=== PATIENT | female | born 1940 | race Caucasian/White ===

== ENCOUNTER 2020-04-01 13:30 | Inpatient (IN) | payer MEDICARE, BC ==
[2020-04-01] MEDS ORDERED: Nitroglycerin 0.4 MG Tab.SL SL PRN (13:35)
[2020-04-01] MEDS: Insulin Lispro 100 Units/ML 3 ML Vial SUBCUT SCH (18:03)
[2020-04-01] MEDS: metFORMIN 500 MG Tab PO SCH (18:03)
[2020-04-01] MEDS: Midodrine 2.5 MG Tab PO SCH (18:03)
--- NOTE | 2020-04-01 19:39 | HP ---
CHIEF COMPLAINT: 1. Hip pain. 2. Weakness. 3. Deconditioning. HISTORY OF PRESENT ILLNESS: An 80-year-old female patient with a past medical history of hypertension, hyperlipidemia, CVA, coronary artery disease status post CABG and PCI, insulin-dependent diabetic, chronic kidney disease, presented to the emergency room at [facility] on 03/24/2020 after she sustained a fall at home. The patient states that she was reaching for the arm on a chair that had wheels when she slipped and fell, landing on her left side. The patient was unable to ambulate due to the left hip pain. In the emergency room, the patient was hypertensive, but afebrile. She had moderate hyperglycemia with elevated white cell count of 13.5. Her chronic kidney disease was stable. Her UA was negative for any UTI. Her x-ray showed proximal left femur fracture. The orthopedics team was consulted and the patient was admitted to [facility] for further management. The patient did undergo surgery on 03/25/2020 for a left hip closed intertrochanteric femur fracture on the left. The operative procedure was open treatment of left hip intertrochanteric femur fracture with cephalomedullary nailing. According to operative records, the patient did well through surgery with no complications. The patient was able to progress well with physical therapy. The patient did have some issues with orthostatic hypotension in which her metoprolol was stopped. The patient was also given 1 unit of red blood cells for a low hemoglobin as well as 2 L of fluid. The patient was doing much better hemodynamically on the date of discharge and was able to be sent to our swing bed. PAST MEDICAL HISTORY: 1. Right ankle fracture. 2. Carotid artery stenosis. 3. Coronary artery disease. 4. Type 2 diabetes. 5. Hyperlipidemia. 6. Hypertension. 7. Peripheral neuropathy. 8. Vitamin D deficiency. PAST SURGICAL HISTORY: 1. Right ankle surgery. 2. Appendectomy. 3. History of cardiac catheterization. 4. Colonoscopy. 5. Colpopexy. 6. Coronary artery stenting. 7. CABG with MEDEROS to LAD. 8. Vaginal hysterectomy. 9. Shoulder surgery. 10.Urethropexy. 11.Vaginal prolapse repair. FAMILY HISTORY: The patient's father was diabetic as well as her mother. She also had 1 brother, who was diabetic. No family history of any breast cancer. SOCIAL HISTORY: The patient has never smoked cigarettes. The patient has never used smokeless tobacco. The patient does not drink alcohol or use any illegal drugs. ALLERGIES: 1. Lescol. 2. Lipitor. 3. Nystatin. MEDICATIONS: 1. NovoLog 8 units subcu 3 times daily with meals. 2. Lantus 30 units subcu daily. 3. Lovenox 40 mg subcu daily. 4. Midodrine 2.5 mg 1 tablet p.o. twice daily. 5. Hydrocodone/acetaminophen 5 mg/325 mg, 1 tablet every 4 hours as needed for pain. 6. Cyanocobalamin 500 mcg 1 tablet p.o. daily. 7. Crestor 10 mg 1 tablet p.o. daily. 8. Nitroglycerin 0.4 mg sublingual 1 tablet every 5 minutes as needed for chest pain. 9. Vitamin D2, 50,000 units twice weekly. 10.Metformin 500 mg 1 tablet p.o. twice daily. 11.Plavix 75 mg 1 tablet p.o. daily. 12.Aspirin 81 mg 1 tablet p.o. daily. 13.Calcium with vitamin D 600 mg/200 mg, 1 tablet p.o. daily. REVIEW OF SYSTEMS: Constitutional: Negative. Respiratory: Negative. Cardiovascular: Negative. Musculoskeletal: The patient denies any pain to the left hip. Skin: Negative. Neurological: Negative. PHYSICAL EXAMINATION: General Presentation: The patient is alert. The patient is cooperative. The patient does not appear to be in any acute distress. Respiratory: Lungs are clear to auscultation. Cardiovascular: Regular rate and rhythm. No murmurs. Abdomen: Soft, nontender. Bowel sounds are hypoactive x4. Skin: Incision site is clean, dry, and intact. No pressure ulcers. Neurological: The patient is alert. The patient is cooperative. No focal neurological deficits. Vital Signs: Weight is 176.4 pounds, height is 5 feet 5 inches. Temperature 97.8, pulse is 83, blood pressure is 177/70, respirations are 16, oxygen saturation 95% on room air. LABORATORY STUDIES: None. IMAGING STUDIES: None. ASSESSMENT: 1. Left femur fracture. 2. Weakness. 3. Deconditioning. 4. Coronary artery disease status post coronary artery bypass grafting and percutaneous coronary intervention. 5. Hypertension. 6. Hyperlipidemia. 7. History of cerebrovascular accident. 8. Diabetes mellitus. PLAN: An 80-year-old female patient with a past medical history of diabetes, coronary artery disease, hypertension, hyperlipidemia. She is admitted to the swing bed unit today for weakness and deconditioning following left hip surgery. The patient is a full code per her wishes. The patient does wish to be transferred to a higher level of care should the need arise. We will continue the Lovenox daily until 04/23/2020. We will check orthostatic blood pressures today. We will also follow up on a low hemoglobin that was noted in the patient's old records from her acute stay admission. We will recheck the hemoglobin this Saturday. PT and OT will be consulted respectively. We will also ask Case Management to see the patient for discharge planning and any home needs. I anticipate the patient will be admitted for at least 1 week, possibly longer. Plan of care was thoroughly discussed with the patient today, who agreed. This patient was seen and examined by me as an [facility] provider. TB: 04/01/2020 17:01:04 MODL: 04/01/2020 19:32:04 /[id number]
[2020-04-01] MEDS: Simvastatin 40 MG Tab PO SCH (20:10)
[2020-04-01] MEDS: Insulin Glarg,Human.Rec.Analog 100 Unit/ML SUBCUT SCH (20:10)
[2020-04-01] MEDS: Acetaminophen/HYDROcodone 325-5 MG Tab PO PRN (20:22)
[2020-04-02] MEDS: Acetaminophen/HYDROcodone 325-5 MG Tab PO PRN ×4 (03:55→21:31)
[2020-04-02] MEDS: Clopidogrel 75 MG Tab PO SCH (08:10)
[2020-04-02] MEDS: Enoxaparin 40 MG/0.4 ML Syringe SUBCUT SCH (08:10)
[2020-04-02] MEDS: Calcium Carbonate/Vitamin D3 1250 MG-200 Unit Tab PO SCH (08:10)
[2020-04-02] MEDS: metFORMIN 500 MG Tab PO SCH ×2 (08:10→17:48)
[2020-04-02] MEDS: Insulin Lispro 100 Units/ML 3 ML Vial SUBCUT SCH ×3 (08:11→17:48)
[2020-04-02] MEDS: Midodrine 2.5 MG Tab PO SCH ×2 (08:12→15:28)
[2020-04-02] MEDS: Cyanocobalamin (Vitamin B12) 250 MCG Tab PO SCH (08:12)
[2020-04-02] MEDS: Aspirin 81 MG Tab.EC PO SCH (08:12)
[2020-04-02] MEDS: Simvastatin 40 MG Tab PO SCH (20:10)
[2020-04-02] MEDS: Insulin Glarg,Human.Rec.Analog 100 Unit/ML SUBCUT SCH (20:10)
[2020-04-03] MEDS: Enoxaparin 40 MG/0.4 ML Syringe SUBCUT SCH (07:50)
[2020-04-03] MEDS: Insulin Lispro 100 Units/ML 3 ML Vial SUBCUT SCH ×3 (07:51→17:52)
[2020-04-03] MEDS: metFORMIN 500 MG Tab PO SCH ×2 (07:53→17:53)
[2020-04-03] MEDS: Midodrine 2.5 MG Tab PO SCH ×2 (07:53→15:26)
[2020-04-03] MEDS: Clopidogrel 75 MG Tab PO SCH (07:53)
[2020-04-03] MEDS: Aspirin 81 MG Tab.EC PO SCH (07:53)
[2020-04-03] MEDS: Calcium Carbonate/Vitamin D3 1250 MG-200 Unit Tab PO SCH (07:54)
[2020-04-03] MEDS: Acetaminophen/HYDROcodone 325-5 MG Tab PO PRN ×3 (07:54→20:52)
[2020-04-03] MEDS: Cyanocobalamin (Vitamin B12) 250 MCG Tab PO SCH (07:54)
[2020-04-03] MEDS: Ondansetron 4 MG Tab.DIS PO PRN (13:44)
[2020-04-03] MEDS: Insulin Glarg,Human.Rec.Analog 100 Unit/ML SUBCUT SCH (20:51)
[2020-04-03] MEDS: Polyethylene Glycol 3350 Powder 17 GM Packet PO SCH (20:52)
[2020-04-03] MEDS: Simvastatin 40 MG Tab PO SCH (20:53)
[2020-04-04] MEDS: Acetaminophen/HYDROcodone 325-5 MG Tab PO PRN ×2 (06:13→14:47)
[2020-04-04] MEDS: Enoxaparin 40 MG/0.4 ML Syringe SUBCUT SCH (08:42)
[2020-04-04] MEDS: Ergocalciferol (Vitamin D2) 1.25 MG Cap PO SCH (08:42)
[2020-04-04] MEDS: Polyethylene Glycol 3350 Powder 17 GM Packet PO SCH (08:42)
[2020-04-04] MEDS: Clopidogrel 75 MG Tab PO SCH (08:43)
[2020-04-04] MEDS: Cyanocobalamin (Vitamin B12) 250 MCG Tab PO SCH (08:43)
[2020-04-04] MEDS: metFORMIN 500 MG Tab PO SCH ×2 (08:43→18:00)
[2020-04-04] MEDS: Calcium Carbonate/Vitamin D3 1250 MG-200 Unit Tab PO SCH (08:43)
[2020-04-04] MEDS: Aspirin 81 MG Tab.EC PO SCH (08:44)
[2020-04-04] MEDS: Insulin Lispro 100 Units/ML 3 ML Vial SUBCUT SCH ×3 (08:44→17:59)
[2020-04-04] MEDS: Midodrine 2.5 MG Tab PO SCH ×2 (08:44→17:06)
[2020-04-04] MEDS: Insulin Glarg,Human.Rec.Analog 100 Unit/ML SUBCUT SCH (20:14)
[2020-04-04] MEDS: Simvastatin 40 MG Tab PO SCH (20:15)
[2020-04-05] MEDS: Polyethylene Glycol 3350 Powder 17 GM Packet PO SCH (08:12)
[2020-04-05] MEDS: Insulin Lispro 100 Units/ML 3 ML Vial SUBCUT SCH ×3 (08:13→17:45)
[2020-04-05] MEDS: Enoxaparin 40 MG/0.4 ML Syringe SUBCUT SCH (08:15)
[2020-04-05] MEDS: Ondansetron 4 MG Tab.DIS PO PRN (08:16)
[2020-04-05] MEDS: Acetaminophen/HYDROcodone 325-5 MG Tab PO PRN ×3 (08:17→23:28)
[2020-04-05] MEDS: Calcium Carbonate/Vitamin D3 1250 MG-200 Unit Tab PO SCH (08:17)
[2020-04-05] MEDS: Cyanocobalamin (Vitamin B12) 250 MCG Tab PO SCH (08:17)
[2020-04-05] MEDS: Clopidogrel 75 MG Tab PO SCH (08:17)
[2020-04-05] MEDS: metFORMIN 500 MG Tab PO SCH ×2 (08:17→17:45)
[2020-04-05] MEDS: Midodrine 2.5 MG Tab PO SCH ×2 (08:18→15:08)
[2020-04-05] MEDS: Aspirin 81 MG Tab.EC PO SCH (08:18)
[2020-04-05] MEDS: Insulin Glarg,Human.Rec.Analog 100 Unit/ML SUBCUT SCH (20:43)
[2020-04-05] MEDS: Simvastatin 40 MG Tab PO SCH (20:44)
[2020-04-06] MEDS: Acetaminophen/HYDROcodone 325-5 MG Tab PO PRN ×2 (05:51→13:51)
[2020-04-06] MEDS: metFORMIN 500 MG Tab PO SCH ×2 (08:39→17:43)
[2020-04-06] MEDS: Enoxaparin 40 MG/0.4 ML Syringe SUBCUT SCH (08:39)
[2020-04-06] MEDS: Polyethylene Glycol 3350 Powder 17 GM Packet PO SCH (08:39)
[2020-04-06] MEDS: Midodrine 2.5 MG Tab PO SCH ×2 (08:40→17:44)
[2020-04-06] MEDS: Cyanocobalamin (Vitamin B12) 250 MCG Tab PO SCH (08:40)
[2020-04-06] MEDS: Calcium Carbonate/Vitamin D3 1250 MG-200 Unit Tab PO SCH (08:40)
[2020-04-06] MEDS: Insulin Lispro 100 Units/ML 3 ML Vial SUBCUT SCH ×3 (08:40→17:43)
[2020-04-06] MEDS: Aspirin 81 MG Tab.EC PO SCH (08:40)
[2020-04-06] MEDS: Clopidogrel 75 MG Tab PO SCH (08:40)
[2020-04-06] MEDS: Acetaminophen 500 MG Tab PO PRN (09:36)
[2020-04-06] MEDS: Simvastatin 40 MG Tab PO SCH (19:54)
[2020-04-06] MEDS: Insulin Glarg,Human.Rec.Analog 100 Unit/ML SUBCUT SCH (19:55)
[2020-04-07] MEDS: Acetaminophen/HYDROcodone 325-5 MG Tab PO PRN ×3 (06:57→17:22)
[2020-04-07] MEDS: Polyethylene Glycol 3350 Powder 17 GM Packet PO SCH (07:40)
[2020-04-07] MEDS: Insulin Lispro 100 Units/ML 3 ML Vial SUBCUT SCH ×3 (07:40→18:36)
[2020-04-07] MEDS: Enoxaparin 40 MG/0.4 ML Syringe SUBCUT SCH (07:40)
[2020-04-07] MEDS: Clopidogrel 75 MG Tab PO SCH (07:41)
[2020-04-07] MEDS: Midodrine 2.5 MG Tab PO SCH ×2 (07:41→17:24)
[2020-04-07] MEDS: Calcium Carbonate/Vitamin D3 1250 MG-200 Unit Tab PO SCH (07:41)
[2020-04-07] MEDS: Cyanocobalamin (Vitamin B12) 250 MCG Tab PO SCH (07:41)
[2020-04-07] MEDS: Ergocalciferol (Vitamin D2) 1.25 MG Cap PO SCH (07:41)
[2020-04-07] MEDS: metFORMIN 500 MG Tab PO SCH ×2 (07:41→17:28)
[2020-04-07] MEDS: Aspirin 81 MG Tab.EC PO SCH (07:41)
[2020-04-07] MEDS: Insulin Glarg,Human.Rec.Analog 100 Unit/ML SUBCUT SCH (20:02)
[2020-04-07] MEDS: Simvastatin 40 MG Tab PO SCH (20:02)
[2020-04-08] MEDS: Ondansetron 4 MG Tab.DIS PO PRN (07:53)
[2020-04-08] MEDS: Enoxaparin 40 MG/0.4 ML Syringe SUBCUT SCH (08:39)
[2020-04-08] MEDS: Polyethylene Glycol 3350 Powder 17 GM Packet PO SCH (08:39)
[2020-04-08] MEDS: Clopidogrel 75 MG Tab PO SCH (08:40)
[2020-04-08] MEDS: Aspirin 81 MG Tab.EC PO SCH (08:40)
[2020-04-08] MEDS: metFORMIN 500 MG Tab PO SCH ×2 (08:40→17:57)
[2020-04-08] MEDS: Insulin Lispro 100 Units/ML 3 ML Vial SUBCUT SCH ×3 (08:40→18:04)
[2020-04-08] MEDS: Calcium Carbonate/Vitamin D3 1250 MG-200 Unit Tab PO SCH (08:40)
[2020-04-08] MEDS: Cyanocobalamin (Vitamin B12) 250 MCG Tab PO SCH (08:40)
[2020-04-08] MEDS: Midodrine 2.5 MG Tab PO SCH ×2 (08:40→17:57)
[2020-04-08] MEDS: Meclizine 25 MG Tab PO SCH ×2 (15:15→20:04)
[2020-04-08] MEDS: Simvastatin 40 MG Tab PO SCH (20:04)
[2020-04-08] MEDS: Insulin Glarg,Human.Rec.Analog 100 Unit/ML SUBCUT SCH (20:05)
[2020-04-08] MEDS: Acetaminophen/HYDROcodone 325-5 MG Tab PO PRN (22:43)
[2020-04-09] MEDS: Acetaminophen 500 MG Tab PO PRN (00:41)
[2020-04-09] MEDS: Acetaminophen/HYDROcodone 325-5 MG Tab PO PRN ×2 (01:29→19:30)
[2020-04-09] MEDS: Ondansetron 4 MG Tab.DIS PO PRN ×3 (03:23→17:18)
[2020-04-09] MEDS: Meclizine 25 MG Tab PO SCH ×3 (08:31→19:31)
[2020-04-09] MEDS: Cyanocobalamin (Vitamin B12) 250 MCG Tab PO SCH (08:31)
[2020-04-09] MEDS: Calcium Carbonate/Vitamin D3 1250 MG-200 Unit Tab PO SCH (08:31)
[2020-04-09] MEDS: Midodrine 2.5 MG Tab PO SCH ×2 (08:31→17:18)
[2020-04-09] MEDS: Aspirin 81 MG Tab.EC PO SCH (08:31)
[2020-04-09] MEDS: metFORMIN 500 MG Tab PO SCH ×2 (08:32→17:43)
[2020-04-09] MEDS: Polyethylene Glycol 3350 Powder 17 GM Packet PO SCH (08:32)
[2020-04-09] MEDS: Clopidogrel 75 MG Tab PO SCH (08:32)
[2020-04-09] MEDS: Enoxaparin 40 MG/0.4 ML Syringe SUBCUT SCH (08:32)
[2020-04-09] MEDS: Insulin Lispro 100 Units/ML 3 ML Vial SUBCUT SCH ×3 (10:32→17:41)
[2020-04-09 15:08] LABS: ANION GAP 13.7 mmol/L (10-20)
[2020-04-09] MEDS ORDERED: Sodium Chloride 0.9% 1,000 ML IV ONE (17:52)
[2020-04-09] MEDS: Simvastatin 40 MG Tab PO SCH (19:30)
[2020-04-09] MEDS: Insulin Glarg,Human.Rec.Analog 100 Unit/ML SUBCUT SCH (19:30)
[2020-04-10] MEDS: Ondansetron 4 MG Tab.DIS PO PRN (05:05)
[2020-04-10] MEDS: Acetaminophen/HYDROcodone 325-5 MG Tab PO PRN ×3 (05:05→19:46)
[2020-04-10] MEDS: Enoxaparin 40 MG/0.4 ML Syringe SUBCUT SCH (08:25)
[2020-04-10] MEDS: Polyethylene Glycol 3350 Powder 17 GM Packet PO SCH (08:25)
[2020-04-10] MEDS: Midodrine 2.5 MG Tab PO SCH ×2 (08:26→17:59)
[2020-04-10] MEDS: Cyanocobalamin (Vitamin B12) 250 MCG Tab PO SCH (08:26)
[2020-04-10] MEDS: metFORMIN 500 MG Tab PO SCH ×2 (08:26→17:59)
[2020-04-10] MEDS: Meclizine 25 MG Tab PO SCH ×3 (08:26→19:45)
[2020-04-10] MEDS: Aspirin 81 MG Tab.EC PO SCH (08:26)
[2020-04-10] MEDS: Clopidogrel 75 MG Tab PO SCH (08:26)
[2020-04-10] MEDS: Insulin Lispro 100 Units/ML 3 ML Vial SUBCUT SCH ×3 (08:26→17:59)
[2020-04-10] MEDS: Calcium Carbonate/Vitamin D3 1250 MG-200 Unit Tab PO SCH (08:26)
--- NOTE | 2020-04-10 10:22 | PCM.SN.2 ---
- Free Text/Narrative Note: Called by nursing staff last evening for "patient just does not feel right." She continues to have dizziness and vomiting, especially with getting in and out of bed. Order given for 1L NS over 8 hours. Labs were unremarkable. Continue with Meclazine. Appears patient is doing somewhat better this morning. UA positive for Acute Cystitis. Will treat with a 7 day course of Macrobid. Suspect patient's symptoms should improve with treatment of UTI. Will continue to monitor.
[2020-04-10] MEDS: Nitrofurantoin Monohydrate/Macrocrystalline 100 MG Cap PO SCH ×2 (11:34→19:46)
[2020-04-10] MEDS: Simvastatin 40 MG Tab PO SCH (19:45)
[2020-04-10] MEDS: Insulin Glarg,Human.Rec.Analog 100 Unit/ML SUBCUT SCH (19:47)
[2020-04-11] MEDS: Acetaminophen 500 MG Tab PO PRN ×2 (05:11→20:18)
[2020-04-11] MEDS: metFORMIN 500 MG Tab PO SCH ×2 (08:11→18:19)
[2020-04-11] MEDS: Ergocalciferol (Vitamin D2) 1.25 MG Cap PO SCH (08:11)
[2020-04-11] MEDS: Nitrofurantoin Monohydrate/Macrocrystalline 100 MG Cap PO SCH ×2 (08:11→20:18)
[2020-04-11] MEDS: Polyethylene Glycol 3350 Powder 17 GM Packet PO SCH (08:11)
[2020-04-11] MEDS: Meclizine 25 MG Tab PO SCH ×3 (08:11→20:19)
[2020-04-11] MEDS: Calcium Carbonate/Vitamin D3 1250 MG-200 Unit Tab PO SCH (08:11)
[2020-04-11] MEDS: Clopidogrel 75 MG Tab PO SCH (08:11)
[2020-04-11] MEDS: Cyanocobalamin (Vitamin B12) 250 MCG Tab PO SCH (08:11)
[2020-04-11] MEDS: Midodrine 2.5 MG Tab PO SCH (08:11)
[2020-04-11] MEDS: Insulin Lispro 100 Units/ML 3 ML Vial SUBCUT SCH ×3 (08:11→18:17)
[2020-04-11] MEDS: Enoxaparin 40 MG/0.4 ML Syringe SUBCUT SCH (08:11)
[2020-04-11] MEDS: Aspirin 81 MG Tab.EC PO SCH (08:11)
[2020-04-11] MEDS: Acetaminophen/HYDROcodone 325-5 MG Tab PO PRN ×2 (11:35→18:45)
[2020-04-11] MEDS: Ondansetron 4 MG Tab.DIS PO PRN (11:35)
[2020-04-11] MEDS ORDERED: Prochlorperazine 10 MG/2 ML SDV IV ONE (12:20)
--- NOTE | 2020-04-11 13:11 | CR ---
[id number] RAD/RAD Chest PA or AP 1V EXAM: SINGLE VIEW CHEST. INDICATION: WEAKNESS FATIGUE COMPARISON: NO PREVIOUS SIMILAR EXAM IS AVAILABLE FINDINGS: The lungs are clear The cardiac silhouette is enlarged. Cardiac surgical changes are seen Surgical changes of the right shoulder are noted IMPRESSION: NO PNEUMONIA OR EDEMA Varun Mast MD 04/11/20 [id number] Thank you for allowing us to participate in the care of your patient.
[2020-04-11] MEDS ORDERED: Sodium Chloride 0.9% 1,000 ML IV SCH (15:45)
[2020-04-11] MEDS ORDERED: Midodrine 2.5 MG Tab PO SCH (17:00)
--- NOTE | 2020-04-11 18:08 | CT ---
[id number] CT/CT Femur Left WO IV Exam: CT Femur Left WO IV Clinical Data: LEFT LEG PAIN RECENT SURGERY COMPARISON: NO PREVIOUS SIMILAR EXAM IS AVAILABLE FINDINGS: Expected surgical changes are seen Vascular calcifications are identified There is no fluid collection There is no other fracture IMPRESSION: EXPECTED POSTOPERATIVE FINDINGS Varun Mast MD 04/11/20 [id number] Thank you for allowing us to participate in the care of your patient.
[2020-04-11] MEDS: Insulin Glarg,Human.Rec.Analog 100 Unit/ML SUBCUT SCH (20:18)
[2020-04-11] MEDS: Simvastatin 40 MG Tab PO SCH (20:18)
[2020-04-11] MEDS ORDERED: Metoclopramide 10 MG/2 ML SDV IVPUSH SCH (20:45)
[2020-04-11] MEDS: Metoclopramide 10 MG/2 ML SDV IVPUSH SCH (22:08)
[2020-04-12] MEDS: Metoclopramide 10 MG/2 ML SDV IVPUSH SCH ×3 (05:00→21:40)
[2020-04-12] MEDS: Acetaminophen 500 MG Tab PO PRN (05:15)
[2020-04-12] MEDS: Polyethylene Glycol 3350 Powder 17 GM Packet PO SCH (07:49)
[2020-04-12] MEDS: Enoxaparin 40 MG/0.4 ML Syringe SUBCUT SCH (07:49)
[2020-04-12] MEDS: Nitrofurantoin Monohydrate/Macrocrystalline 100 MG Cap PO SCH ×2 (07:50→20:28)
[2020-04-12] MEDS: Calcium Carbonate/Vitamin D3 1250 MG-200 Unit Tab PO SCH (07:50)
[2020-04-12] MEDS: Meclizine 25 MG Tab PO SCH ×3 (07:50→20:28)
[2020-04-12] MEDS: Clopidogrel 75 MG Tab PO SCH (07:50)
[2020-04-12] MEDS: Aspirin 81 MG Tab.EC PO SCH (07:50)
[2020-04-12] MEDS: Cyanocobalamin (Vitamin B12) 250 MCG Tab PO SCH (07:50)
[2020-04-12] MEDS: metFORMIN 500 MG Tab PO SCH ×2 (07:51→17:56)
[2020-04-12] MEDS: Insulin Lispro 100 Units/ML 3 ML Vial SUBCUT SCH ×3 (07:55→17:56)
[2020-04-12] MEDS: Ondansetron 4 MG Tab.DIS PO PRN (12:00)
[2020-04-12] MEDS ORDERED: Iopamidol 612 MG/ML 100 ML Bottle IVPUSH ONE (15:21)
--- NOTE | 2020-04-12 16:29 | CT ---
[id number] CT/CT Femur Left W IV Exam: CT Femur Left W IV Indication:THIGH PAIN. Comparison: Yesterday. Discussion: In the anterior muscular compartment of the thigh there is a 62 x 35 x 227 mm mass of mixed density. In the setting of recent fracture and surgery, intramuscular hematoma is most likely. No significant change in size compared to yesterday. No evidence of active bleeding. With limitations of streak artifact from the fixation hardware, hardware is intact. Fracture fragments are in near-anatomic alignment. No evidence of an abscess or osteomyelitis. No AVN. Chronic healed bilateral pubic ramus fractures. Impression: Findings most consistent with hematoma in the anterior muscular compartment of the thigh. No radiographic evidence of active bleeding. Other findings are described above. Dashawn Cervantes MD 04/12/20 [id number] Thank you for allowing us to participate in the care of your patient.
[2020-04-12] MEDS ORDERED: Sodium Chloride 0.9% 1,000 ML IV ONE (17:09)
[2020-04-12] MEDS: Simvastatin 40 MG Tab PO SCH (20:28)
[2020-04-12] MEDS: Insulin Glarg,Human.Rec.Analog 100 Unit/ML SUBCUT SCH ×2 (20:29→21:41)
[2020-04-13] MEDS: Metoclopramide 10 MG/2 ML SDV IVPUSH SCH ×3 (05:11→22:04)
[2020-04-13] MEDS: Sodium Chloride 0.9% 10 ML Syringe FLUSH PRN ×2 (05:12→12:10)
[2020-04-13] MEDS: Calcium Carbonate/Vitamin D3 1250 MG-200 Unit Tab PO SCH (09:06)
[2020-04-13] MEDS: Enoxaparin 40 MG/0.4 ML Syringe SUBCUT SCH (09:06)
[2020-04-13] MEDS: Acetaminophen/HYDROcodone 325-5 MG Tab PO PRN ×3 (09:06→22:04)
[2020-04-13] MEDS: Meclizine 25 MG Tab PO SCH ×3 (09:06→20:00)
[2020-04-13] MEDS: Cyanocobalamin (Vitamin B12) 250 MCG Tab PO SCH (09:06)
[2020-04-13] MEDS: Clopidogrel 75 MG Tab PO SCH (09:07)
[2020-04-13] MEDS: metFORMIN 500 MG Tab PO SCH ×2 (09:07→17:48)
[2020-04-13] MEDS: Aspirin 81 MG Tab.EC PO SCH (09:07)
[2020-04-13] MEDS: Nitrofurantoin Monohydrate/Macrocrystalline 100 MG Cap PO SCH ×2 (09:07→20:00)
[2020-04-13] MEDS: Polyethylene Glycol 3350 Powder 17 GM Packet PO SCH (09:08)
[2020-04-13] MEDS: Insulin Lispro 100 Units/ML 3 ML Vial SUBCUT SCH ×3 (09:08→18:03)
[2020-04-13] MEDS: Acetaminophen 500 MG Tab PO PRN (17:48)
[2020-04-13] MEDS: Simvastatin 40 MG Tab PO SCH (20:00)
[2020-04-13] MEDS: Insulin Glarg,Human.Rec.Analog 100 Unit/ML SUBCUT SCH (20:01)
[2020-04-14] MEDS: Metoclopramide 10 MG/2 ML SDV IVPUSH SCH ×3 (05:30→22:19)
[2020-04-14] MEDS: Enoxaparin 40 MG/0.4 ML Syringe SUBCUT SCH (08:09)
[2020-04-14] MEDS: Nitrofurantoin Monohydrate/Macrocrystalline 100 MG Cap PO SCH ×2 (08:09→20:14)
[2020-04-14] MEDS: Meclizine 25 MG Tab PO SCH ×3 (08:09→20:14)
[2020-04-14] MEDS: Calcium Carbonate/Vitamin D3 1250 MG-200 Unit Tab PO SCH (08:09)
[2020-04-14] MEDS: Clopidogrel 75 MG Tab PO SCH (08:09)
[2020-04-14] MEDS: Aspirin 81 MG Tab.EC PO SCH (08:09)
[2020-04-14] MEDS: Cyanocobalamin (Vitamin B12) 250 MCG Tab PO SCH (08:10)
[2020-04-14] MEDS: metFORMIN 500 MG Tab PO SCH ×2 (08:10→17:35)
[2020-04-14] MEDS: Polyethylene Glycol 3350 Powder 17 GM Packet PO SCH (08:10)
[2020-04-14] MEDS: Ergocalciferol (Vitamin D2) 1.25 MG Cap PO SCH (08:10)
[2020-04-14] MEDS: Insulin Lispro 100 Units/ML 3 ML Vial SUBCUT SCH ×3 (08:11→17:35)
--- NOTE | 2020-04-14 09:46 | CR ---
[id number] RAD/RAD Pelvis 1V W 2V Left Hip Exam: RAD Pelvis 1V W 2V Left Hip Clinical Data: FOLLOW-UP FIXATION OF LEFT FEMORAL FRACTURE COMPARISON: CORRELATION IS MADE WITH 2019 FINDINGS: Internal fixation of the left intertrochanteric fracture is seen Bilateral old pubic rami fractures are identified IMPRESSION: NO NEW FINDINGS Varun Mast MD 04/14/20 0945 Thank you for allowing us to participate in the care of your patient.
[2020-04-14] MEDS: Acetaminophen/HYDROcodone 325-5 MG Tab PO PRN (10:35)
[2020-04-14] MEDS: Ferrous Sulfate 325 MG Tab PO SCH (17:51)
[2020-04-14] MEDS: Insulin Glarg,Human.Rec.Analog 100 Unit/ML SUBCUT SCH (20:10)
[2020-04-14] MEDS: Simvastatin 40 MG Tab PO SCH (20:14)
[2020-04-14] MEDS: Sodium Chloride 0.9% 10 ML Syringe FLUSH PRN (22:22)
[2020-04-15] MEDS: Metoclopramide 10 MG/2 ML SDV IVPUSH SCH (05:45)
[2020-04-15] MEDS: Sodium Chloride 0.9% 10 ML Syringe FLUSH PRN ×2 (05:46→09:16)
[2020-04-15] MEDS: Insulin Lispro 100 Units/ML 3 ML Vial SUBCUT SCH ×3 (09:14→18:18)
[2020-04-15] MEDS: Ondansetron 4 MG Tab.DIS PO PRN (09:14)
[2020-04-15] MEDS: Enoxaparin 40 MG/0.4 ML Syringe SUBCUT SCH (09:14)
[2020-04-15] MEDS: Metoclopramide 10 MG Tab PO SCH ×3 (09:15→19:51)
[2020-04-15] MEDS: Polyethylene Glycol 3350 Powder 17 GM Packet PO SCH (09:15)
[2020-04-15] MEDS: metFORMIN 500 MG Tab PO SCH ×2 (09:15→18:17)
[2020-04-15] MEDS: Calcium Carbonate/Vitamin D3 1250 MG-200 Unit Tab PO SCH (09:15)
[2020-04-15] MEDS: Acetaminophen/HYDROcodone 325-5 MG Tab PO PRN ×2 (09:15→15:13)
[2020-04-15] MEDS: Cyanocobalamin (Vitamin B12) 250 MCG Tab PO SCH (09:15)
[2020-04-15] MEDS: Meclizine 25 MG Tab PO SCH ×3 (09:16→19:51)
[2020-04-15] MEDS: Nitrofurantoin Monohydrate/Macrocrystalline 100 MG Cap PO SCH ×2 (09:16→19:51)
[2020-04-15] MEDS: Aspirin 81 MG Tab.EC PO SCH (09:16)
[2020-04-15] MEDS: Ferrous Sulfate 325 MG Tab PO SCH (09:16)
[2020-04-15] MEDS: Clopidogrel 75 MG Tab PO SCH (09:16)
[2020-04-15] MEDS: Sodium Chloride 0.9% 1,000 ML IV SCH ×2 (11:02→22:16)
[2020-04-15] MEDS: Insulin Glarg,Human.Rec.Analog 100 Unit/ML SUBCUT SCH (19:50)
[2020-04-15] MEDS: Acetaminophen 500 MG Tab PO PRN (19:51)
[2020-04-15] MEDS: Simvastatin 40 MG Tab PO SCH (19:51)
[2020-04-16] MEDS: Ondansetron 4 MG Tab.DIS PO PRN ×2 (05:39→13:10)
[2020-04-16] MEDS: Sodium Chloride 0.9% 1,000 ML IV SCH (06:11)
[2020-04-16] MEDS: Enoxaparin 40 MG/0.4 ML Syringe SUBCUT SCH (07:56)
[2020-04-16] MEDS: Ferrous Sulfate 325 MG Tab PO SCH ×2 (07:56→11:04)
[2020-04-16] MEDS: Calcium Carbonate/Vitamin D3 1250 MG-200 Unit Tab PO SCH ×2 (07:56→11:04)
[2020-04-16] MEDS: Clopidogrel 75 MG Tab PO SCH ×2 (07:56→11:05)
[2020-04-16] MEDS: metFORMIN 500 MG Tab PO SCH ×2 (07:56→11:04)
[2020-04-16] MEDS: Acetaminophen/HYDROcodone 325-5 MG Tab PO PRN ×2 (07:56→13:10)
[2020-04-16] MEDS: Cyanocobalamin (Vitamin B12) 250 MCG Tab PO SCH ×2 (07:56→11:01)
[2020-04-16] MEDS: Polyethylene Glycol 3350 Powder 17 GM Packet PO SCH (07:57)
[2020-04-16] MEDS: Aspirin 81 MG Tab.EC PO SCH ×2 (07:57→11:04)
[2020-04-16] MEDS: Metoclopramide 10 MG Tab PO SCH ×3 (07:57→12:52)
[2020-04-16] MEDS: Meclizine 25 MG Tab PO SCH ×3 (07:57→12:52)
[2020-04-16] MEDS: Nitrofurantoin Monohydrate/Macrocrystalline 100 MG Cap PO SCH ×2 (07:57→11:05)
[2020-04-16] MEDS: Insulin Lispro 100 Units/ML 3 ML Vial SUBCUT SCH ×3 (07:57→12:52)
[2020-04-16] MEDS: Acetaminophen 500 MG Tab PO PRN (10:05)
[2020-04-16 10:29] LABS: ANION GAP 15.6 mmol/L (10-20)
[2020-04-16] MEDS ORDERED: cefTRIAXone 1 GM Vial IVPUSH ONE (10:32)
[2020-04-16] MEDS ORDERED: Iopamidol 612 MG/ML 100 ML Bottle IVPUSH ONE (10:47)
[2020-04-16] MEDS ORDERED: Iopamidol 612 MG/ML 50 ML SDV PO SCH (11:00)
--- NOTE | 2020-04-16 12:15 | CT ---
[id number] CT/CT Abdomen Pelvis W IV EXAM: CT Abdomen Pelvis W IV CLINICAL DATA: ABDOMEN PAIN, FEVER, NAUSEA,VOMITTING. COMPARISON STUDY: None. FINDINGS: Dependent atelectasis at the lung bases bilaterally. Interlobular septal thickening suggestive of mild interstitial edema. The heart is enlarged. There are multiple stones within the gallbladder. The gallbladder is distended and. The gallbladder demonstrates prominence of the wall and mild surrounding fat stranding. The liver is unremarkable. The spleen is enlarged measuring up to 13 cm. The pancreas, adrenal glands and kidneys are unremarkable. Circumferential wall thickening the urinary bladder. Additionally there appears to be a small foci of air within the bladder. Moderate amount of retained stool within the colon. No evidence of obstruction. Small amount of free fluid within the pelvis. No lymphadenopathy or pneumoperitoneum. Scattered changes of spondylosis the spine. No fracture or osseous lesion. Postsurgical changes of the left femur. Old healed fractures of the pelvis bilaterally. IMPRESSION: 1. Cholelithiasis. The gallbladder is distended with minimal wall thickening and pericholecystic fat stranding. Findings could be seen with acute cholecystitis. 2. Circumferential wall thickening the urinary bladder with a small foci of air. Findings could be seen with acute cystitis. Relation with urinalysis is recommended. 3. Small amount of free fluid within the pelvis. Alexis Manjarrez DO 04/16/20 0900 Thank you for allowing us to participate in the care of your patient.
--- NOTE | 2020-04-16 14:15 | DISCH ---
CHIEF COMPLAINT: 1. Weakness. 2. Deconditioning. HISTORY OF PRESENT ILLNESS: An 80-year-old female patient, was admitted to the swing bed unit at [facility] on 04/01/2020, status post left hip replacement. The patient's surgery was uneventful and she was able to be transferred to swing bed. While on swing bed, the patient did seem to do okay the 1st couple of days, however, she developed some nausea and vomiting. The patient sustained a left hip fracture when she was reaching for a chair and fell. The patient was then transferred to [facility] in [place], where she underwent a left hip closed intertrochanteric femur fracture of the left. The patient was able to progress with physical therapy. She did have some issues with orthostatic hypotension and she was also given 1 unit of blood after surgery. The patient was also given some fluids. Her hemoglobin had improved. Therefore, she was transferred to swing bed. BRIEF HOSPITAL COURSE: The patient seemed to do well the 1st couple of days while on swing bed, however, she subsequently developed some significant nausea and vomiting. The patient was also very orthostatic. Her blood pressures when sitting and lying would be in the 170s to 180s/110s, however, with standing, her systolic blood pressure would drop to the 80s. The midodrine was stopped. The patient has not been on her metoprolol since surgery. The patient had laboratory work checked which did not reveal any acute pathology for her symptoms at that time. The patient continued to have nausea, vomiting, and orthostatic hypotension and weakness. The patient did develop a fever today of 102. The nausea and vomiting continued. The patient has also been incontinent of stool. CT scan was performed which showed an acute cholecystitis. The patient did meet sepsis criteria with fever and tachycardia. She was given 1 g of Rocephin. CONSULTATIONS: Physical and Occupational Therapy. DISCHARGE MEDICATIONS: 1. Acetaminophen 1000 mg 1 tablet p.o. every 6 hours as needed. 2. Vicodin 1 to 2 tablets every 4 hours as needed. 3. Aspirin 81 mg 1 tablet p.o. daily. 4. Calcium carbonate with vitamin D 1 tablet p.o. daily. 5. Plavix 75 mg 1 tablet p.o. daily. 6. Cyanocobalamin 500 mcg 1 tablet p.o. daily. 7. Lovenox 40 mg subcutaneous every 24 hours. 8. Vitamin D 1.25 mg 1 tablet p.o. twice weekly. 9. Ferrous sulfate 325 mg 1 tablet p.o. daily. 10.Insulin glargine 30 units subcu at bedtime. 11.Insulin lispro 8 units subcutaneous 3 times a day. 12.Meclizine 25 mg 1 tablet p.o. 3 times daily. 13.Metformin 500 mg 1 tablet p.o. twice daily. 14.Reglan 10 mg 1 tablet p.o. 3 times daily. 15.Macrobid 100 mg 1 tablet p.o. twice daily. 16.Nitroglycerin 0.4 mg sublingual as directed. 17.Ondansetron 4 mg 1 tablet p.o. every 8 hours as needed. 18.MiraLax 17 g p.o. daily. 19.Simvastatin 40 mg 1 tablet p.o. daily at bedtime. DISCHARGE LABORATORY WORK: 1. CBC: White blood cell count 6.2, hemoglobin is 8.8, hematocrit 26.9, platelets are 213,000. 2. CMP: Sodium 134, potassium 3.6, chloride 99, CO2 is 23, anion gap is 15.6, BUN of 16, creatinine 1.0, GFR is 53, glucose 238. Calcium 7.5, corrected calcium 9.10, total bilirubin 0.6, AST 32, ALT 19, alkaline phosphatase 158, total protein 5.3, albumin 2.0. 3. Lactic acid 1.1. 4. C-reactive protein 8.3. 5. Blood cultures - pending. 6. COVID-19 negative. REVIEW OF SYSTEMS: General Presentation: The patient states she does not feel very well. Complains of nausea, has been vomiting, feels feverish with chills. Respiratory: Negative. Cardiac: Negative. Abdomen: Nausea and vomiting, incontinent of stool. Skin: Negative. Neurological: Negative. PHYSICAL EXAMINATION: Vital Signs: Temperature 101.4, blood pressure 148/64, pulse is 96, respirations 14, oxygen saturation 95% on room air. General Presentation: The patient is alert. The patient is cooperative. The patient does not appear to be in any acute distress. Respiratory: Lungs are clear to auscultation. Cardiac: Regular rate and rhythm, no murmur. Abdomen: Bowel sounds are hypoactive x4. Right upper quadrant tenderness. Skin: Intact, warm and dry. Neurologic: The patient is alert. No focal neurological deficits. ASSESSMENT: 1. Acute cholecystitis. 2. Left femur fracture. 3. Weakness. 4. Deconditioning. 5. Coronary artery disease, status post coronary artery bypass grafting and percutaneous coronary intervention. 6. Hypertension. 7. Hyperlipidemia. 8. History of cerebrovascular accident. 9. Diabetes mellitus. PLAN: The case was discussed with Dr. Bright, ED Department at [facility] in [place]. The patient was accepted in transfer due to acute cholecystitis, fever, sepsis. The patient will be sent to [facility]. The patient agrees to transfer. M-TeleForm was completed. The patient was signed out to Dr. Bright who accepted the patient in transfer. this patient was seen and examined by me as an [facility] provider. TB: 04/16/2020 12:55:17 MODL: 04/16/2020 14:07:25 /[id number]
== END 2020-04-16 13:50 | disposition short-term general hospital (02) | DRG 559 ==
LOC: VM.MS 13:30
PROVIDERS: ADMIT Nurse Practitioner Family; ATTEND Nurse Practitioner Family
DX: S72.142D Displaced intertrochanteric fracture of left femur, subsequent encounter for closed fracture with routine healing (principal); A41.9 Sepsis, unspecified organism; K81.0 Acute cholecystitis; N30.00 Acute cystitis without hematuria; R53.1 Weakness; I12.9 Hypertensive chronic kidney disease with stage 1 through stage 4 chronic kidney disease, or unspecified chronic kidney disease; E11.22 Type 2 diabetes mellitus with diabetic chronic kidney disease; N18.9 Chronic kidney disease, unspecified; Z20.828 Contact with and (suspected) exposure to other viral communicable diseases; I25.10 Atherosclerotic heart disease of native coronary artery without angina pectoris; I10 Essential (primary) hypertension; E78.5 Hyperlipidemia, unspecified; E11.42 Type 2 diabetes mellitus with diabetic polyneuropathy; Z88.8 Allergy status to other drugs, medicaments and biological substances; Z95.1 Presence of aortocoronary bypass graft; Z86.73 Personal history of transient ischemic attack (TIA), and cerebral infarction without residual deficits; Z79.4 Long term (current) use of insulin; Z79.82 Long term (current) use of aspirin; Z79.899 Other long term (current) drug therapy
CPT/HCPCS: 36415; 71045; 73700; 73701; 74177; 80048; 80053; 81001; 82150; 82728; 82962; 83540; 83550; 83605; 83690; 85008; 85025; 85027; 85046; 86140; 87040; 87086; 87088; 87186; 93005; 97110-GP; 97116-GP; 97163-GP; 97165-GO; 97530-GP; 97535-GO; A9270-GY; J0696; J1650; J1815-GY; J2765; J7030; Q9967; U0002

== ENCOUNTER 2020-04-18 07:01 | Inpatient (IN) | payer MEDICARE, BC ==
[2020-04-18] MEDS ORDERED: Nitroglycerin 0.4 MG Tab.SL SL PRN (11:29)
[2020-04-18] MEDS ORDERED: Acetaminophen/HYDROcodone 325-5 MG Tab PO PRN (11:29)
[2020-04-18] MEDS: Insulin Lispro 100 Units/ML 3 ML Vial SUBCUT SCH ×2 (14:43→17:38)
[2020-04-18] MEDS: metFORMIN 500 MG Tab PO SCH (17:33)
[2020-04-18] MEDS: Insulin Glarg,Human.Rec.Analog 100 Unit/ML SUBCUT SCH (20:24)
[2020-04-18] MEDS: Acetaminophen 325 MG Tab PO PRN (20:26)
[2020-04-18] MEDS: Simvastatin 40 MG Tab PO SCH (20:26)
[2020-04-19] MEDS: Clopidogrel 75 MG Tab PO SCH (11:02)
[2020-04-19] MEDS: metFORMIN 500 MG Tab PO SCH ×2 (11:02→17:46)
[2020-04-19] MEDS: Enoxaparin 40 MG/0.4 ML Syringe SUBCUT SCH (11:02)
[2020-04-19] MEDS: Aspirin 81 MG Tab.EC PO SCH (11:02)
[2020-04-19] MEDS: Cyanocobalamin (Vitamin B12) 250 MCG Tab PO SCH ×2 (11:02→11:09)
[2020-04-19] MEDS: Ferrous Sulfate 325 MG Tab PO SCH (11:03)
[2020-04-19] MEDS: Calcium Carbonate/Vitamin D3 1250 MG-200 Unit Tab PO SCH ×2 (11:03→11:09)
[2020-04-19] MEDS: Insulin Lispro 100 Units/ML 3 ML Vial SUBCUT SCH ×3 (11:06→17:41)
[2020-04-19] MEDS: Insulin Glarg,Human.Rec.Analog 100 Unit/ML SUBCUT SCH ×2 (11:16→19:46)
--- NOTE | 2020-04-19 12:48 | HP ---
CHIEF COMPLAINT: 1. Weakness. 2. Deconditioning. HISTORY OF PRESENT ILLNESS: An 80-year-old female with past medical history of hypertension, hyperlipidemia, CVA, coronary artery disease status post CABG and PCI, insulin-dependent diabetic, chronic kidney disease, had originally presented to the emergency room at [facility] on 03/24 after she had a fall at home. The patient was found to have a left hip fracture. The patient underwent a left hip closed intertrochanteric femur fracture on 03/25/2020. The patient was admitted to our swing bed on 04/01/2020. During her stay on swing bed, she had considerable weakness with nausea and vomiting, and generally not feeling well. It was found that the patient had acute cholecystitis. She was therefore transferred to in [place] on 04/16/2020, where she underwent a laparoscopic cholecystectomy. The patient did well postoperatively and was able to be transferred back to our swing bed unit for weakness and deconditioning. PAST MEDICAL HISTORY: 1. Right ankle fracture. 2. Coronary artery disease. 3. Carotid artery stenosis. 4. Type 2 diabetes. 5. Hyperlipidemia. 6. Hypertension. 7. Peripheral neuropathy. 8. Vitamin D deficiency. PAST SURGICAL HISTORY: 1. Right ankle surgery. 2. Appendectomy. 3. History of cardiac catheterization. 4. Colonoscopy. 5. Colpopexy. 6. Coronary artery stenting. 7. CABG with MEDEROS to LAD. 8. Vaginal hysterectomy. 9. Shoulder surgery. 10.Urethropexy. 11.Vaginal prolapse repair. FAMILY HISTORY: The patient's father was diabetic as well as her mother. She has 1 brother who was also diabetic. No family history of any breast cancer. SOCIAL HISTORY: The patient has never smoked cigarettes. The patient has never used smokeless tobacco. The patient does not drink alcohol. ALLERGIES: 1. Lescol. 2. Lipitor. 3. Nystatin. MEDICATIONS: 1. Acetaminophen 650 mg 1 tablet p.o. every 4 hours as needed. 2. Acetaminophen/hydrocodone 5 mg/325 mg 1 tablet p.o. every 4 hours as needed. 3. Aspirin 81 mg 1 tablet p.o. daily. 4. Calcium carbonate/vitamin-D 1 tablet p.o. daily. 5. Plavix 75 mg 1 tablet p.o. daily. 6. Cyanocobalamin 500 mcg 1 tablet p.o. daily. 7. Enoxaparin 40 mg subcu every 24 hours, last dose 04/23. 8. Vitamin D 1.25 mg 1 tablet p.o. twice weekly. 9. Ferrous sulfate 325 mg 1 tablet p.o. daily. 10.Insulin glargine 15 units subcu twice daily. 11.Insulin lispro 8 units subcu 3 times a day with meals. 12.Metformin 500 mg 1 tablet twice daily. 13.Nitroglycerin 0.4 mg sublingual as directed. 14.Zofran 4 mg 1 tablet p.o. every 8 hours as needed. 15.Simvastatin 40 mg 1 tablet p.o. daily at bedtime. REVIEW OF SYSTEMS: Constitutional: Negative. Respiratory: Negative. Cardiovascular: Negative. Abdomen: Complains of soreness at surgical sites secondary to laparoscopic cholecystectomy. Skin: Negative. Neurological: Negative. PHYSICAL EXAMINATION: General Presentation: The patient is alert. The patient is cooperative. The patient does not appear to be in any acute distress. Respiratory: Lungs are clear to auscultation. Cardiovascular: Regular rate and rhythm. No murmurs. Abdomen: Soft, tender at surgical sites. The patient has 4 separate incisions secondary to laparoscopic cholecystectomy. Incisions are clean, dry, and intact. Bowel sounds are hypoactive x4. Skin: Incision sites are clean and dry. No pressure ulcers. Neurological: The patient is alert. The patient is oriented to person, place, and time. Vital Signs: Height 5 feet 9 inches, weight 177 pounds, temperature 97.9, pulse is 81, blood pressure 163/57, respiratory rate 16, pulse oximetry 96% on room air. ASSESSMENT: 1. Acute cholecystitis. 2. Status post laparoscopic cholecystectomy. 3. Weakness. 4. Deconditioning. 5. Left femur fracture. 6. Coronary artery disease status post coronary artery bypass grafting and percutaneous coronary intervention. 7. Hypertension. 8. Hyperlipidemia. 9. History of cerebrovascular accident. 10.Type 2 diabetes. PLAN: An 80-year-old female patient with past medical history of diabetes, coronary artery disease, hypertension, hyperlipidemia, was admitted to the swing bed unit today for weakness and deconditioning following left hip surgery and most recently laparoscopic cholecystectomy. We will consult Physical and Occupational Therapy. The patient will continue on Lovenox until 04/23/2020. Continue all home medications the same. Case management will also be involved for discharge planning. We will recheck hemoglobin later this week due to being on Lovenox. The patient is a full code per her wish. The patient does wish to be transferred to higher level of care should the need arise. I anticipate the patient will be admitted for at least 1 week, possibly longer. Plan of care was thoroughly discussed with the patient today, who agrees. This patient was seen and examined by me as an provider. TB: 04/19/2020 07:50:47 MODL: 04/19/2020 12:41:10 /[id number]
[2020-04-19] MEDS: Acetaminophen 325 MG Tab PO PRN ×2 (15:24→19:47)
[2020-04-19] MEDS: Simvastatin 40 MG Tab PO SCH (19:47)
[2020-04-20] MEDS: Enoxaparin 40 MG/0.4 ML Syringe SUBCUT SCH (08:07)
[2020-04-20] MEDS: Insulin Lispro 100 Units/ML 3 ML Vial SUBCUT SCH ×3 (08:08→17:50)
[2020-04-20] MEDS: Acetaminophen 325 MG Tab PO PRN ×2 (08:09→19:33)
[2020-04-20] MEDS: Insulin Glarg,Human.Rec.Analog 100 Unit/ML SUBCUT SCH ×2 (08:09→19:33)
[2020-04-20] MEDS: Aspirin 81 MG Tab.EC PO SCH (08:10)
[2020-04-20] MEDS: Calcium Carbonate/Vitamin D3 1250 MG-200 Unit Tab PO SCH (08:10)
[2020-04-20] MEDS: Clopidogrel 75 MG Tab PO SCH (08:10)
[2020-04-20] MEDS: Cyanocobalamin (Vitamin B12) 250 MCG Tab PO SCH (08:10)
[2020-04-20] MEDS: metFORMIN 500 MG Tab PO SCH ×2 (08:10→17:49)
[2020-04-20] MEDS: Ferrous Sulfate 325 MG Tab PO SCH (08:11)
[2020-04-20] MEDS: Simvastatin 40 MG Tab PO SCH (19:33)
[2020-04-20] MEDS: Ondansetron 4 MG Tab.DIS PO PRN (19:37)
[2020-04-21] MEDS: Ondansetron 4 MG Tab.DIS PO PRN ×2 (08:46→19:54)
[2020-04-21] MEDS: Enoxaparin 40 MG/0.4 ML Syringe SUBCUT SCH (08:46)
[2020-04-21] MEDS: Ergocalciferol (Vitamin D2) 1.25 MG Cap PO SCH (08:47)
[2020-04-21] MEDS: Calcium Carbonate/Vitamin D3 1250 MG-200 Unit Tab PO SCH (08:47)
[2020-04-21] MEDS: Aspirin 81 MG Tab.EC PO SCH (08:47)
[2020-04-21] MEDS: Ferrous Sulfate 325 MG Tab PO SCH (08:47)
[2020-04-21] MEDS: metFORMIN 500 MG Tab PO SCH ×2 (08:47→17:37)
[2020-04-21] MEDS: Acetaminophen 325 MG Tab PO PRN (08:47)
[2020-04-21] MEDS: Cyanocobalamin (Vitamin B12) 250 MCG Tab PO SCH (08:48)
[2020-04-21] MEDS: Clopidogrel 75 MG Tab PO SCH (08:48)
[2020-04-21] MEDS: Insulin Lispro 100 Units/ML 3 ML Vial SUBCUT SCH ×3 (08:48→17:38)
[2020-04-21] MEDS: Insulin Glarg,Human.Rec.Analog 100 Unit/ML SUBCUT SCH ×2 (08:49→19:54)
[2020-04-21] MEDS: Simvastatin 40 MG Tab PO SCH (19:54)
[2020-04-22] MEDS: Clopidogrel 75 MG Tab PO SCH (08:54)
[2020-04-22] MEDS: Calcium Carbonate/Vitamin D3 1250 MG-200 Unit Tab PO SCH (08:54)
[2020-04-22] MEDS: metFORMIN 500 MG Tab PO SCH ×2 (08:54→19:18)
[2020-04-22] MEDS: Cyanocobalamin (Vitamin B12) 250 MCG Tab PO SCH (08:55)
[2020-04-22] MEDS: Aspirin 81 MG Tab.EC PO SCH (08:55)
[2020-04-22] MEDS: Ferrous Sulfate 325 MG Tab PO SCH (08:55)
[2020-04-22] MEDS: Insulin Lispro 100 Units/ML 3 ML Vial SUBCUT SCH ×3 (08:57→17:52)
[2020-04-22] MEDS: Enoxaparin 40 MG/0.4 ML Syringe SUBCUT SCH (08:58)
[2020-04-22] MEDS: Insulin Glarg,Human.Rec.Analog 100 Unit/ML SUBCUT SCH ×2 (09:45→20:30)
[2020-04-22] MEDS: Ondansetron 4 MG Tab.DIS PO PRN (20:22)
[2020-04-22] MEDS: Acetaminophen 325 MG Tab PO PRN (20:22)
[2020-04-22] MEDS: Simvastatin 40 MG Tab PO SCH (20:22)
[2020-04-23] MEDS: Ferrous Sulfate 325 MG Tab PO SCH (08:27)
[2020-04-23] MEDS: Cyanocobalamin (Vitamin B12) 250 MCG Tab PO SCH (08:27)
[2020-04-23] MEDS: Aspirin 81 MG Tab.EC PO SCH (08:27)
[2020-04-23] MEDS: Calcium Carbonate/Vitamin D3 1250 MG-200 Unit Tab PO SCH (08:27)
[2020-04-23] MEDS: Clopidogrel 75 MG Tab PO SCH (08:28)
[2020-04-23] MEDS: Enoxaparin 40 MG/0.4 ML Syringe SUBCUT SCH (08:32)
[2020-04-23] MEDS: metFORMIN 500 MG Tab PO SCH ×2 (08:34→18:23)
[2020-04-23] MEDS: Insulin Glarg,Human.Rec.Analog 100 Unit/ML SUBCUT SCH ×2 (08:35→20:48)
[2020-04-23] MEDS: Insulin Lispro 100 Units/ML 3 ML Vial SUBCUT SCH ×3 (08:36→18:23)
[2020-04-23] MEDS: Ondansetron 4 MG Tab.DIS PO PRN (15:26)
[2020-04-23] MEDS: Simvastatin 40 MG Tab PO SCH (20:44)
[2020-04-23] MEDS: Acetaminophen 325 MG Tab PO PRN (20:46)
[2020-04-24] MEDS: Cyanocobalamin (Vitamin B12) 250 MCG Tab PO SCH (09:21)
[2020-04-24] MEDS: Ferrous Sulfate 325 MG Tab PO SCH (09:21)
[2020-04-24] MEDS: Aspirin 81 MG Tab.EC PO SCH (09:21)
[2020-04-24] MEDS: Insulin Glarg,Human.Rec.Analog 100 Unit/ML SUBCUT SCH (09:21)
[2020-04-24] MEDS: Calcium Carbonate/Vitamin D3 1250 MG-200 Unit Tab PO SCH (09:21)
[2020-04-24] MEDS: metFORMIN 500 MG Tab PO SCH ×2 (09:21→18:15)
[2020-04-24] MEDS: Clopidogrel 75 MG Tab PO SCH (09:21)
[2020-04-24] MEDS: Insulin Lispro 100 Units/ML 3 ML Vial SUBCUT SCH ×3 (09:23→18:15)
[2020-04-24] MEDS: Acetaminophen 325 MG Tab PO PRN ×2 (09:32→18:19)
[2020-04-24] MEDS: Ondansetron 4 MG Tab.DIS PO PRN (20:43)
[2020-04-24] MEDS: Simvastatin 40 MG Tab PO SCH (20:44)
[2020-04-25] MEDS: Insulin Glarg,Human.Rec.Analog 100 Unit/ML SUBCUT SCH ×3 (06:04→20:40)
[2020-04-25] MEDS: Insulin Lispro 100 Units/ML 3 ML Vial SUBCUT SCH ×3 (08:51→18:28)
[2020-04-25] MEDS: Ferrous Sulfate 325 MG Tab PO SCH (08:51)
[2020-04-25] MEDS: metFORMIN 500 MG Tab PO SCH ×2 (08:51→18:27)
[2020-04-25] MEDS: Ergocalciferol (Vitamin D2) 1.25 MG Cap PO SCH (08:51)
[2020-04-25] MEDS: Clopidogrel 75 MG Tab PO SCH (08:51)
[2020-04-25] MEDS: Calcium Carbonate/Vitamin D3 1250 MG-200 Unit Tab PO SCH (08:51)
[2020-04-25] MEDS: Aspirin 81 MG Tab.EC PO SCH (08:51)
[2020-04-25] MEDS: Cyanocobalamin (Vitamin B12) 250 MCG Tab PO SCH (08:57)
[2020-04-25] MEDS: Simvastatin 40 MG Tab PO SCH (20:40)
[2020-04-26] MEDS: Acetaminophen 325 MG Tab PO PRN (02:23)
[2020-04-26] MEDS: Cyanocobalamin (Vitamin B12) 250 MCG Tab PO SCH (09:06)
[2020-04-26] MEDS: Calcium Carbonate/Vitamin D3 1250 MG-200 Unit Tab PO SCH (09:07)
[2020-04-26] MEDS: Ferrous Sulfate 325 MG Tab PO SCH (09:07)
[2020-04-26] MEDS: Clopidogrel 75 MG Tab PO SCH (09:07)
[2020-04-26] MEDS: Aspirin 81 MG Tab.EC PO SCH (09:07)
[2020-04-26] MEDS: metFORMIN 500 MG Tab PO SCH ×2 (09:07→17:33)
[2020-04-26] MEDS: Insulin Glarg,Human.Rec.Analog 100 Unit/ML SUBCUT SCH ×2 (09:08→19:39)
[2020-04-26] MEDS: Insulin Lispro 100 Units/ML 3 ML Vial SUBCUT SCH ×3 (09:08→17:33)
[2020-04-26] MEDS: Simvastatin 40 MG Tab PO SCH (19:39)
[2020-04-27] MEDS: Clopidogrel 75 MG Tab PO SCH (08:21)
[2020-04-27] MEDS: Cyanocobalamin (Vitamin B12) 250 MCG Tab PO SCH (08:21)
[2020-04-27] MEDS: Ferrous Sulfate 325 MG Tab PO SCH (08:21)
[2020-04-27] MEDS: Aspirin 81 MG Tab.EC PO SCH (08:21)
[2020-04-27] MEDS: Calcium Carbonate/Vitamin D3 1250 MG-200 Unit Tab PO SCH (08:21)
[2020-04-27] MEDS: metFORMIN 500 MG Tab PO SCH ×2 (08:21→18:06)
[2020-04-27] MEDS: Insulin Glarg,Human.Rec.Analog 100 Unit/ML SUBCUT SCH ×2 (08:22→21:13)
[2020-04-27] MEDS: Insulin Lispro 100 Units/ML 3 ML Vial SUBCUT SCH ×3 (08:26→18:07)
[2020-04-27] MEDS: Ondansetron 4 MG Tab.DIS PO PRN (13:34)
[2020-04-27] MEDS: Simvastatin 40 MG Tab PO SCH (21:11)
[2020-04-28] MEDS: Aspirin 81 MG Tab.EC PO SCH (09:32)
[2020-04-28] MEDS: Ergocalciferol (Vitamin D2) 1.25 MG Cap PO SCH (09:33)
[2020-04-28] MEDS: Clopidogrel 75 MG Tab PO SCH (09:33)
[2020-04-28] MEDS: Calcium Carbonate/Vitamin D3 1250 MG-200 Unit Tab PO SCH (09:33)
[2020-04-28] MEDS: Ferrous Sulfate 325 MG Tab PO SCH (09:33)
[2020-04-28] MEDS: metFORMIN 500 MG Tab PO SCH ×2 (09:33→18:34)
[2020-04-28] MEDS: Cyanocobalamin (Vitamin B12) 250 MCG Tab PO SCH (09:33)
[2020-04-28] MEDS: Insulin Glarg,Human.Rec.Analog 100 Unit/ML SUBCUT SCH ×2 (09:33→20:10)
[2020-04-28] MEDS: Insulin Lispro 100 Units/ML 3 ML Vial SUBCUT SCH ×3 (09:35→18:34)
[2020-04-28] MEDS: Simvastatin 40 MG Tab PO SCH (20:07)
[2020-04-29] MEDS: Insulin Lispro 100 Units/ML 3 ML Vial SUBCUT SCH (08:00)
[2020-04-29] MEDS: Insulin Glarg,Human.Rec.Analog 100 Unit/ML SUBCUT SCH (08:01)
[2020-04-29] MEDS: Acetaminophen 325 MG Tab PO PRN (08:03)
[2020-04-29] MEDS: metFORMIN 500 MG Tab PO SCH (08:03)
[2020-04-29] MEDS: Calcium Carbonate/Vitamin D3 1250 MG-200 Unit Tab PO SCH (08:03)
[2020-04-29] MEDS: Cyanocobalamin (Vitamin B12) 250 MCG Tab PO SCH (08:03)
[2020-04-29] MEDS: Clopidogrel 75 MG Tab PO SCH (08:03)
[2020-04-29] MEDS: Aspirin 81 MG Tab.EC PO SCH (08:04)
[2020-04-29] MEDS: Ondansetron 4 MG Tab.DIS PO PRN (08:04)
[2020-04-29] MEDS: Ferrous Sulfate 325 MG Tab PO SCH (08:04)
[2020-04-29] MEDS ORDERED: FLU Vacc QV2020-21(65YR UP)/PF 240 MCG/0.7 ML Syringe IM ONE (09:00)
--- NOTE | 2020-04-29 15:39 | DISCH ---
HISTORY OF PRESENT ILLNESS: An 80-year-old female patient with a past medical historyof hypertension, hyperlipidemia, CVA, coronary artery disease status post CABG and PCI, insulin-dependent diabetic, chronic kidney disease, had originally presented to the emergency room at [facility] in [place] on 03/24/2020 after she fell at home. The patient was found to have a left hip fracture. The patient underwent a left hip "intertrochanteric" femur fracture repair on 03/25/2020. The patient was admitted to [facility] Swing Bed on 04/01/2020. During her stay in swing bed, the patient had considerable weakness, nausea, vomiting, and generally was not feeling well. The patient was also orthostatic. The patient had a CT scan of her abdomen and pelvis, which showed acute cholecystitis. Therefore, the patient was transferred back to [facility]. On 04/16/2020, the patient underwent a laparoscopic cholecystectomy. The patient did well postoperatively and was able to be transferred back to her swing bed unit on 04/18/2020 for continued weakness and deconditioning. BRIEF HOSPITAL COURSE: The patient did well with physical therapy. The patient remained hemodynamically stable, however, she still would have low blood pressures, but tolerable. The patient has tolerated her diet. She has not had any nausea or vomiting. The patient did not have any issues with urination or bowel movements. Her pain was well controlled on plain Tylenol. Recommendation from Physical Therapy is to continue with therapy at home. The patient remained afebrile. The incision sites for laparoscopic cholecystectomy are well healed. CONSULTATIONS: Physical and Occupational Therapy, respectively. ALLERGIES: 1. Lescol. 2. Lipitor. 3. Nystatin. REVIEW OF SYSTEMS: Constitutional: Negative. Skin: Negative. Respiratory: Negative. Cardiovascular: Negative. Abdomen: Some mild soreness, otherwise normal. Neurological: Negative. Musculoskeletal: Some left hip pain, but tolerable. DISCHARGE PHYSICAL EXAMINATION: Vital Signs: Temperature 98.3, pulse is 76, blood pressure 150/49, respirations 16, oxygen saturation 96% on room air. Discharge weight is 170 pounds, height is 5 feet 9 inches. General: No acute distress. The patient is appropriate. The patient is cooperative. Respiratory: Lungs are clear to auscultation. No atelectasis. Cardiovascular: Regular rate and rhythm. No murmur. Abdomen: Soft. Slight tenderness over incision sites. Bowel sounds are normoactive. Skin: Abdominal incision sites and left hip incision sites are very well healed. Skin is intact. Warm and dry. Neurological: The patient is alert. The patient is oriented x3. Sensation normal. DISCHARGE LABORATORY WORK: None. DISCHARGE IMAGING STUDIES: None. DISCHARGE MEDICATIONS: 1. Acetaminophen 650 mg 1 tablet p.o. every 4 hours as needed. 2. Aspirin 81 mg p.o. daily. 3. Calcium carbonate/vitamin D 1 tablet p.o. daily. 4. Plavix 75 mg 1 tablet p.o. daily. 5. Cyanocobalamin 500 mcg 1 tablet p.o. daily. 6. Vitamin D 1.25 mg 1 tablet p.o. on Saturday, . 7. Ferrous sulfate 325 mg 1 tablet p.o. daily. 8. Insulin glargine 15 units subcu twice daily. 9. Insulin lispro 8 units subcu 3 times daily. 10.Metformin 500 mg 1 tablet p.o. twice daily. 11.Nitrostat 0.4 mg 1 tablet sublingual every 5 minutes as directed. 12.Simvastatin 40 mg 1 tablet p.o. daily. ASSESSMENT: 1. Left hip fracture. 2. Status post left hip intertrochanteric femur repair. 3. Acute cholecystitis. 4. Status post laparoscopic cholecystectomy. 5. Coronary artery disease status post coronary artery bypass grafting and percutaneous coronary intervention. 6. Hypertension. 7. Hyperlipidemia. 8. History of cerebrovascular disease or accident. 9. Type 2 diabetes, on insulin. No complications. PLAN: An 80-year-old female patient with a past medical history of diabetes, CAD, hypertension, hyperlipidemia, was admitted to the swing bed unit for weakness and deconditioning secondary to left hip fracture repair and also acute cholecystectomy. The patient will be discharged on home medications without any change. The patient will also be discharged on home health with physical therapy. The patient is a code 1. The plan of care was thoroughly discussed with the patient, who agrees with home health. [id number] ENCOUNTER DOCUMENTATION: Date of encounter: 04/29/2020. Patient name: Chaor Ortiz Date of : 1940. I certify that Charo Ortiz is under my care and that I had a [id number] encounter that needs a physician [id number] requirement on 04/29/2020. This date must match the discharge summary, progress note/clinic visit documentation supporting this information. The encounter with the patient was in full or in part for the following medical conditions, which is the primary reason for home healthcare; left hip fracture, status post left hip fracture repair, weakness, deconditioning, status post lap michelle. My clinical findings support the need for the services because of inability to safely get to outpatient facility for therapy due to fall risk, lack of muscle coordination and tone, shortness of breath with or without activity (walking greater than 20 feet; talking; completing ADLs) and prolonged weakness. Further, I certify that my clinical findings support that this patient is homebound (i.e. absences from home require considerable and taxing effort, or are for medical reasons, or for taoist services, or infrequent, or of short duration when some other reasons) because the patient is unable to safely ambulate distances less than 20 feet. The patient experiences shortness of breath at rest and/or with daily activities. The patient requires frequent rest periods due to prolonged weakness and endurance. The patient requires use of assistive device and/or use of wall/furniture to ambulate (by fall risk) and the patient requires assistance of another person to leave the home. Certification: For home health services. I certify that Charo Ortiz meets the homebound requirements for the peer source and has the need for intermittent jail, physical therapy, and/or speech, or occupational therapy services in home for the diagnosis currently outlined in the initial plan of care. These services will continue to be monitored by myself. I will periodically review and update the plan of care as required. My signature indicates that this supplemental documentation has been incorporated in the patient's medical record. TB: 04/28/2020 20:01:24 MODL: 04/28/2020 21:31:36 /[id number] JONATHAN
== END 2020-04-29 09:34 | disposition home health service (06) | DRG 948 ==
LOC: VM.MS 13:21
PROVIDERS: ADMIT Nurse Practitioner Family; ATTEND Nurse Practitioner Family
DX: R53.1 Weakness (principal); I12.9 Hypertensive chronic kidney disease with stage 1 through stage 4 chronic kidney disease, or unspecified chronic kidney disease; N18.9 Chronic kidney disease, unspecified; E11.22 Type 2 diabetes mellitus with diabetic chronic kidney disease; E78.5 Hyperlipidemia, unspecified; S72.142D Displaced intertrochanteric fracture of left femur, subsequent encounter for closed fracture with routine healing; I25.10 Atherosclerotic heart disease of native coronary artery without angina pectoris; E11.42 Type 2 diabetes mellitus with diabetic polyneuropathy; E55.9 Vitamin D deficiency, unspecified; Z86.73 Personal history of transient ischemic attack (TIA), and cerebral infarction without residual deficits; Z95.1 Presence of aortocoronary bypass graft; Z90.49 Acquired absence of other specified parts of digestive tract; Z90.710 Acquired absence of both cervix and uterus; Z88.8 Allergy status to other drugs, medicaments and biological substances; Z79.82 Long term (current) use of aspirin; Z79.4 Long term (current) use of insulin; Z79.899 Other long term (current) drug therapy; Z23 Encounter for immunization
CPT/HCPCS: 36415; 82962; 85025; 90662; 97110-GP; 97116-GP; 97140-GP; 97161-GP; 97165-GO; 97530-GP; A9270-GY; G0008; J1650; J1815-GY